=== PATIENT | female | born 1970 | race Caucasian/White ===

== ENCOUNTER → 2018-04-26 | Outpatient (CLI) | payer OTHER ==
[2018-04-26 14:05] LABS: C REACTIVE PROTEIN QUANTITATIV < 0.30 MG/DL (0.00-0.30)
[2018-04-26 14:05] LABS: RHEUMATOID FACTOR QUANT 10.5 IU/ML (<15.0)
[2018-04-26 14:12] LABS: ERYTHROCYTE SEDIMENTATION RATE 31 mm/hr (0-30)
[2018-04-27 16:17] LABS: SSA SJOGRENS A <0.2 AI (0.0-0.9); SSB SJOGRENS B <0.2 AI (0.0-0.9)
== END ==
LOC: M LAB 12:24
DX: M35.00 Sjogren syndrome, unspecified (principal)
CPT/HCPCS: 86235

== ENCOUNTER → 2021-12-14 | Outpatient (CLI) | payer OTHER ==
[~2021-12-14] MED LIST: /BACIOPOI OP; ASPI81TA3 PO; BACT800T PO; COLA100C2 PO; DIOV320T PO; HYDR25TA6 PO; LEXA1TAB PO; LEXA1TAB2 OR; LOPR50TA PO; MILKSUS PO; NORV5TAB PO; OXYC10TA97 PO; PERC5TAB8 PO; PERC7.5T8 PO; SYNT125T PO; THERGRAN PO; VITA500T PO
== END ==
LOC: M WUC 10:58
PROVIDERS: ATTEND Physician Assistant Medical
DX: S52.122A Displaced fracture of head of left radius, initial encounter for closed fracture (principal)

== ENCOUNTER → 2024-06-12 | Outpatient (CLI) | payer OTHER ==
[~2024-06-12] MED LIST changes: +ERGO500029; +FENO145T7 PO; +METF500T13
== END ==
LOC: M RAD 07:02
PROVIDERS: ATTEND Internal Medicine Hematology & Oncology
DX: K76.0 Fatty (change of) liver, not elsewhere classified (principal); R79.9 Abnormal finding of blood chemistry, unspecified; N28.89 Other specified disorders of kidney and ureter

== ENCOUNTER → 2024-07-10 | Outpatient (CLI) | payer OTHER ==
[~2024-07-10] MED LIST changes: +PROHANCE 279.3MG/ML 15ML VIAL ONE; +PROHANCE 279.3MG/ML 5ML VIAL ONE
== END ==
LOC: M PLAIMG 14:44
PROVIDERS: ATTEND Internal Medicine Medical Oncology
DX: D49.511 Neoplasm of unspecified behavior of right kidney (principal)
CPT/HCPCS: 74183; A9576

== ENCOUNTER → 2024-10-28 | Outpatient (CLI) | payer OTHER ==
[~2024-10-28] MED LIST changes: -PROHANCE 279.3MG/ML 15ML VIAL ONE; -PROHANCE 279.3MG/ML 5ML VIAL ONE
== END ==
LOC: M RAD 15:19
PROVIDERS: ATTEND Internal Medicine Medical Oncology
DX: Z01.89 Encounter for other specified special examinations (principal)

== ENCOUNTER → 2025-04-30 | Outpatient (CLI) | payer OTHER | LOC: M RAD 15:38 | PROVIDERS: ATTEND Internal Medicine Medical Oncology | DX: N28.89 Other specified disorders of kidney and ureter (principal) ==